=== PATIENT | female | born 1960 | race Caucasian/White ===

== ENCOUNTER → 2018-03-02 | Outpatient (CLI) | payer OTHER | LOC: CIMAGING 14:35 | PROVIDERS: ATTEND Family Medicine | DX: Z01.818 Encounter for other preprocedural examination (principal) | CPT/HCPCS: 71046-PO ==

== ENCOUNTER 2018-03-09 05:31 | Day surgery (SDC) | payer OTHER ==
--- NOTE | 2018-03-08 22:53 | GHP ---
[f rep st] PREOP HISTORY AND PHYSICAL DATE OF ADMISSION: 03/09/2018 ADMISSION DIAGNOSIS: Right ankle impingement. PLANNED PROCEDURE: Right ankle arthroscopic debridement. HISTORY OF PRESENT ILLNESS: Heather is a 58-year-old female with slowly worsening right ankle pain. She has undergone a previous procedure greater than 5 years ago where she had similar symptoms whic h did make her feel significantly improved up until about a year ago, and she has had slowly worsenin g pain again. Decision has been made to proceed with a repeat ankle debridement arthroscopically. PRIOR MEDICAL HISTORY: Hypertension and obesity. PRIOR SURGICAL HISTORY: Previous ankle arthroscopy. MEDICATIONS: Advil and lisinopril. ALLERGIES: No known drug allergies. SOCIAL HISTORY: Does not smoke. Occasional alcohol use. [place] in town. Works for [employer]. REVIEW OF SYSTEMS: No shortness of breath or chest pain. Otherwise, review of systems is unremarkab le. PHYSICAL EXAMINATION: GENERAL: Alert and oriented x3. Alert and oriented x3. VITAL SIGNS: She is 5 feet 5 inches tall, weighs 230 pounds. Blood pressure is 136/74, heart rate 76, respiratory rate 14 on room air. HEENT: Normocephalic, atraumatic. Extraocular muscles intact. NECK: Supple. The re is no lymphadenopathy. No JVD. CHEST: Clear to auscultation. CARDIOVASCULAR: Regular rate and rhythm. ABDOMEN: Soft, nontender, nondistended. RIGHT LOWER EXTREMITY: Ankle exam shows tenderne ss along the anterior ankle joint. She has about 5 degrees of ankle dorsiflexion, 40 of plantar flex ion. Mild restriction in subtalar mobility. 1+ anterior drawer with a firm end point. Calf is soft . Achilles tendon is intact. 2+ dorsalis pedis, posterior tibial pulses. Sensation is intact to th e dorsum and plantar aspect of the foot. IMAGING: X-rays are reviewed. They show some mild joint space narrowing with some tibial anterior s purring. ASSESSMENT: Anterior ankle impingement, right. PLAN: Heather has failed conservative management including activity modification, bracing, and phys ical therapy. I recommend proceeding with an arthroscopic ankle debridement. Risks and benefits inc luding continued pain postoperatively, the need for additional surgery in future, blood clots, infect ion, and nerve and blood vessel injury were all discussed. She understands these risks wished to pro ceed. Plan on surgery Monday at the Hospital. Preoperative paperwork was completed. /[id number]/MODL
[2018-03-09] MEDS ORDERED: ceFAZolin 2 GM/DEXTROSE 100 ML IV ONE (06:00)
[2018-03-09] MEDS ORDERED: LR 1,000 ML IV ONE (06:13)
--- NOTE | 2018-03-09 06:57 | PDANEPAE ---
ANE Past Medical History - Cardiovascular History Hx Hypertension: Yes Hx Arrhythmias: No Hx Chest Pain: No Hx Coronary Artery / Peripheral Vascular Disease: No Hx CHF / Valvular Disease: No Hx Palpitations: No - Pulmonary History Hx COPD: No Hx Asthma/Reactive Airway Disease: No Hx Recent Upper Respiratory Infection: No Hx Oxygen in Use at Home: No Hx Sleep Apnea: No Sleep Apnea Screening Result - Last Documented: Positive - Neurologic History Hx Cerebrovascular Accident: No Hx Seizures: No Hx Dementia: No - Endocrine History Hx Diabetes: No Hypothyroid: No Hyperthyroid: No Obesity: severe - Renal History Hx Renal Disorders: No - Liver History Hx Hepatic Disorders: No - Neurological & Psychiatric Hx Hx Neurological and Psychiatric Disorders: Yes Neurological / Psychiatric History Comment: 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 2015 elbow reconstruction ANE Review of Systems Review of Systems: - Exercise capacity METS (RN): 4 METS ANE Patient History - Allergies Allergies/Adverse Reactions: No Known Allergies Allergy (Verified 03/05/18 11:51) - Home Medications Home Medications: Chlorthalidone 03/05/18 [Last Taken 03/08/18] Lisinopril 03/05/18 [Last Taken 03/08/18] Naproxen 03/05/18 [Last Taken 03/07/18] - NPO status NPO Since - Liquids (Date): 03/08/18 NPO Since - Liquids (Time): 20:00 NPO Since - Solids (Date): 03/08/18 NPO Since - Solids (Time): 20:30 - Smoking Hx Smoking Status: Former smoker - Family Anes Hx Family Hx Anesthesia Complications: none ANE Labs/Vital Signs - Vital Signs Blood Pressure: 143/80 Heart Rate: 82 Respiratory Rate: 16 O2 Sat (%): 95 Height: 165.1 cm Weight: 117.934 kg ANE Physical Exam - Airway Neck exam: decreased ROM Mallampati Score: Class 2 Mouth exam: normal dental/mouth exam - Pulmonary Pulmonary: no respiratory distress - Cardiovascular Cardiovascular: regular rate and rhythym - ASA Status ASA Status: III ANE Anesthesia Plan Anesthesia Plan: general endotracheal anesthesia, GA w LMA
[2018-03-09] MEDS ORDERED: BUPIVACAINE 0.5% 30 ML SDV ONE (06:58)
--- NOTE | 2018-03-09 07:02 | PDHPUP ---
History & Physical Update H&P update statement: This history and physical update is based on an assessment of the patient which was completed after admission or registration (within 24 hours), but prior to the surgery/procedure. H&P update: H&P reviewed & patient examined, no change in patient's condition since H&P completed
[2018-03-09] MEDS ORDERED: LIDO/EPI 1% **for epidural** 30 ML SDV ONE (07:11)
[2018-03-09] MEDS ORDERED: PROPOFOL 200 MG/20 ML VIAL ONE ×2 (07:16)
[2018-03-09] MEDS ORDERED: fentaNYL 250 MCG/5 ML INJ ONE (07:19)
[2018-03-09] MEDS ORDERED: LIDOCAINE 2% 5 ML SDV ONE (07:28)
[2018-03-09] MEDS ORDERED: GLYCOPYRROLATE 0.2 MG/1 ML VIAL ONE ×2 (07:44)
[2018-03-09] MEDS ORDERED: ONDANSETRON 4 MG/2 ML VIAL ONE (08:06)
[2018-03-09] MEDS ORDERED: DEXAMETHASONE 4 MG/ML VIAL ONE (08:06)
[2018-03-09] MEDS ORDERED: KETOROLAC 30 MG/1 ML SDV ONE (08:06)
--- NOTE | 2018-03-09 08:18 | POSTOPPROG ---
Post Op Note Date of Operation: 03/09/18 Surgeon: Santy Chin Anesthesiologist: mile Anesthesia: GET(General Endotracheal) Pre-op Diagnosis: RT ankle impingement Post-op Diagnosis: same Procedure: arthroscopic debridement/synovectomy, chondroplasty Inf/Abcess present in the surg proc area at time of surgery?: No EBL: Minimal Complications: none
[2018-03-09] MEDS ORDERED: NALOXONE HCL 0.4 MG/ML INJ IVP PRN (08:22)
[2018-03-09] MEDS ORDERED: HYDROCODONE/APAP 5/325 TAB PO PRN (08:22)
[2018-03-09] MEDS ORDERED: LABETALOL HCL 5 MG/ML 20 ML MDV IVP PRN (08:22)
[2018-03-09] MEDS ORDERED: PROMETHAZINE HCL 25 MG/ML INJ IVP PRN (08:22)
[2018-03-09] MEDS ORDERED: LR 500 ML IV PRN (08:22)
[2018-03-09] MEDS ORDERED: fentaNYL 100 MCG/2 ML INJ IVP PRN (08:22)
--- NOTE | 2018-03-09 08:23 | POSTANESTH ---
Post Anesthetic Evaluation Cardiovascular Status: Normal, Stable Respiratory Status: Normal, Stable Level of Consciousness/Mental Status: Can Participate in Eval Pain Control: Adequate, Prn Tx Ordered Nausea/Vomiting Control: Adequate, Prn Tx Ordered Complications Possibly Related to Anesthesia: None Noted
--- NOTE | 2018-03-09 08:45 | GOP ---
[f rep st] OPERATIVE REPORT DATE OF OPERATION: 03/09/2018 SURGEON: Santy Chin MD ANESTHESIA: General. ANESTHESIOLOGIST: Dr. Bella. PREOPERATIVE DIAGNOSIS: Right ankle impingement. POSTOPERATIVE DIAGNOSIS: Right ankle impingement. PROCEDURE PERFORMED: 1. Arthroscopic right ankle debridement, partial synovectomy. 2. Rose chondroplasty. FINDINGS: ESTIMATED BLOOD LOSS: Minimal. DESCRIPTION OF PROCEDURE: After appropriate informed consent was obtained, patient was taken to the operating room, placed supine on the operating table. Time-out was performed. Patient was identifie d. Correct site was identified. She received 2 g of Ancef preoperatively. Following the induction of general endotracheal tube anesthesia, right lower extremity was prepped and draped in usual steril e fashion. I instilled 5 mL of 1% lidocaine plain into both anteromedial and anterolateral portal. I made a small [place] incision, inserted the camera through a standard anterior medial portal. An ante rolateral portal was obtained under direct visualization. There was quite a bit of synovitis and inf lamed tissue anteriorly. This was carefully debrided back with the motorized shaver. Medial and lat eral gutters also had quite a bit of scar tissue, which were debrided out as well. The Rose cartil age, for the most part, was intact except for anterior medially there was 1 area that was frayed. I debrided this back. There were also some areas of fraying on the anterior aspect of the tibia. Thes e were gently debrided performing a chondroplasty there. Instruments were then withdrawn. Portal in cisions were closed with 3-0 nylon. I instilled 20 mL of 0.5% Marcaine plain around the incision. S terile dressing was applied. Patient was awakened from anesthesia, and taken to the recovery room in satisfactory condition. There were no immediate intraoperative complications. TOTAL TOURNIQUET TIME: 29 minutes at 250 mmHg. COMPLICATIONS: None. DRAINS: None. HISTORY: The patient is a 58-year-old female with early ankle arthritis and anterior ankle impingeme nt. She is having persistent anterior ankle pain that has failed conservative management including b racing, activity modification, physical therapy. Decision was made to proceed with an arthroscopic a nkle debridement. /[id number]/MODL
[2018-03-09 09:44] VITALS: BP 108/56
== END 2018-03-09 09:48 | disposition home or self-care (01) ==
LOC: FSGY 05:31
PROVIDERS: ATTEND Orthopaedic Surgery
PROC: 0SBF4ZZ Excision of Right Ankle Joint, Percutaneous Endoscopic Approach (ICD-10-PCS; principal; 2018-03-09 07:15)
DX: M25.871 Other specified joint disorders, right ankle and foot (principal)
CPT/HCPCS: J0690; J1100; J1885; J2405; J2704; J3010